=== PATIENT | male | born 1975 | race Two or more races ===

== ENCOUNTER 2020-06-26 20:49 | Emergency (ER) | payer SELFPAY ==
[~2020-06-26] VITALS: Ht 162.6 cm; Wt 54.4 kg
[2020-06-26 21:00] VITALS: BP 114/79
--- NOTE | 2020-06-26 21:12 | PHYS DOC ---
Adult General Chief Complaint Chief Complaint: WRIST PAIN HPI HPI Patient is a 45-year-old male who presents to the emergency department with right hand, wrist and elbow pain. States that he was playing with his child at about 6 PM this evening, fell on an outstretched hand and had immediate pain, 6 out of 10, sharp in nature generally in his right hand/wrist and elbow. Denies any other injuries. States that he took some ibuprofen at home and put some ice on it. Review of Systems Review of Systems Review of systems otherwise unremarkable except noted in HPI Allergies Allergies Allergies Coded Allergies Type Severity Reaction Last Updated Verified No Known Drug Allergies 06/26/20 No Physical Exam Physical Exam Constitutional: Well developed, well nourished, no acute distress, non-toxic appearance. [] HENT: Normocephalic, atraumatic, bilateral external ears normal, oropharynx moist, no oral exudates, nose normal. [] Neck: Normal range of motion, no tenderness, supple, no stridor. [] Cardiovascular:Heart rate regular rhythm, no murmur [] Lungs & Thorax: Bilateral breath sounds clear to auscultation [] Abdomen: no tenderness, Skin: Warm, dry, no erythema, no rash. [] Back: No tenderness, Extremities: Tenderness and swelling in the wrist with no obvious bruising or deformities with some tenderness generally in the hand up the forearm into the elbow with no obvious bruising or deformity. Neurovascular exam intact. Range of motion intact but does cause discomfort Neurologic: Alert and oriented X 3, no focal deficits noted. [] Psychologic: Affect normal, judgement normal, mood normal. [] EKG EKG [] Radiology/Procedures Radiology/Procedures []XR ELBOW COMPLETE_RIGHT 3+ VIEWS, XR RT WRIST 3VIEWS, XR HAND_RIGHT 3 VIEWS 06/26/2020 9:28 PM INDICATION: Fall with history of table saw injury. COMPARISON: None available. TECHNIQUE: 3 views the right hand, 3 views the right wrist and 3 views the right elbow are provided. FINDINGS/ IMPRESSION: 1. Right hand: Surgical resection of fourth metacarpal and phalanx. Surgical clips are present. No acute fracture or dislocation. Joint spaces are maintained. No significant soft tissue abnormality. 2. Right wrist: There is a comminuted fracture of the distal radial metadiaphysis with intra-articular extension to the radiocarpal joint. Mildly displaced ulnar styloid process fracture. Soft tissue swelling is present. 3. Proximal radius and ulna are intact. No elbow joint effusion. Distal humerus is intact. Radiocapitellar joint is preserved. Electronically signed by: Judi Zhu MD (06/26/2020 9:51 PM) [facility] Heart Score C/O Chest Pain: No Risk Factors: Risk Factors: DM, Current or recent (<one month) smoker, HTN, HLP, family history of CAD, obesity. Risk Scores: Risk Factors: DM, Current or recent (<one month) smoker, HTN, HLP, family history of CAD, obesity. Course & Med Decision Making Course & Med Decision Making Patient is a 45-year-old male who presents with right hand/wrist/elbow pain after falling on an outstretched hand Vital signs not concerning. Physical exam noted above. Patient given ice and pain medication in the ED. Imaging notable for comminuted fracture of the distal radial metadiaphysis with extension into the radiocarpal joint. And mildly displaced ulnar styloid fracture. Neurovascular exam intact. Capillary refill appropriate. Sensation appropriate. Pain control with good results. Patient placed in a sugar tong splint. Discussed all findings with family and advised that they needed to see a orthopedic surgeon as soon as possible. Given number for [facility]. Advised to call first thing Sunday. Advised that we should probably talk to the orthopedic surgeon while in the emergency department, but patient stated he would just call them Sunday morning. Gave the risks of this including excessive pain, nerve damage, vascular damage, disability. Family stated they would prefer to go home and call the orthopedics on Sunday. gave pain management for home. Gave education on fractures and splint management. Gave strict return precautions to the ED. Family grateful, verbalized understanding and agreed with plan of discharge. Dragon Disclaimer Dragon Disclaimer This electronic medical record was generated, in whole or in part, using a voice recognition dictation system. Departure Departure: Disposition: HOME / SELF CARE / HOMELESS Condition: GOOD Referrals: PCP,NO (PCP) LINO FLORES MD Patient Instructions: Radial Fracture, Ulnar Fracture Additional Instructions: Please read all of the attached information very carefully. Please take care of your splint as discussed and noted in your education. Please keep your arm elevated, use ibuprofen and your pain medication as discussed and prescribed over the next several days. As discussed, you must call the orthopedic surgeon first thing Sunday morning to discuss your ED visit and set up a follow-up appointment as soon as possible preferably in the next couple of days for reevaluation and reimaging as discussed. As discussed you must come back to the emergency department immediately with any new, or concerning symptoms. [facility] [phone] if you are unable to get a hold of an orthopedic surgeon you can return to the emergency department and we will get a hold of them for you as discussed. Scripts Oxycodone HCl/Acetaminophen (Percocet 5-325 mg Tablet) 1 Each Tablet 1 TAB PO Q6HRS PRN for fracture MDD 2 Tablet(s) for 7 Days, #25 TAB 0 Refills Prov: DERICK CABRERA MD 06/26/20 DERICK CABRERA MD June 26, 2020 21:12
[2020-06-26] MEDS ORDERED: oxyCODONE/APAP 5/325 1 TAB TABLET PO ONE (21:15)
--- NOTE | 2020-06-26 21:54 | RAD ---
XR ELBOW COMPLETE_RIGHT 3+ VIEWS, XR RT WRIST 3VIEWS, XR HAND_RIGHT 3 VIEWS 06/26/2020 9:28 PM INDICATION: Fall with history of table saw injury. COMPARISON: None available. TECHNIQUE: 3 views the right hand, 3 views the right wrist and 3 views the right elbow are provided. FINDINGS/ IMPRESSION: 1. Right hand: Surgical resection of fourth metacarpal and phalanx. Surgical clips are present. No ac [place] fracture or dislocation. Joint spaces are maintained. No significant soft tissue abnormality. 2. Right wrist: There is a comminuted fracture of the distal radial metadiaphysis with intra-articula r extension to the radiocarpal joint. Mildly displaced ulnar styloid process fracture. Soft tissue sw elling is present. 3. Proximal radius and ulna are intact. No elbow joint effusion. Distal humerus is intact. Radiocapit ellar joint is preserved. Electronically signed by: Judi Zhu MD (06/26/2020 9:51 PM) [facility]
--- NOTE | 2020-06-26 21:54 | RAD ---
XR ELBOW COMPLETE_RIGHT 3+ VIEWS, XR RT WRIST 3VIEWS, XR HAND_RIGHT 3 VIEWS 06/26/2020 9:28 PM INDICATION: Fall with history of table saw injury. COMPARISON: None available. TECHNIQUE: 3 views the right hand, 3 views the right wrist and 3 views the right elbow are provided. FINDINGS/ IMPRESSION: 1. Right hand: Surgical resection of fourth metacarpal and phalanx. Surgical clips are present. No ac [place] fracture or dislocation. Joint spaces are maintained. No significant soft tissue abnormality. 2. Right wrist: There is a comminuted fracture of the distal radial metadiaphysis with intra-articula r extension to the radiocarpal joint. Mildly displaced ulnar styloid process fracture. Soft tissue sw elling is present. 3. Proximal radius and ulna are intact. No elbow joint effusion. Distal humerus is intact. Radiocapit ellar joint is preserved. Electronically signed by: Judi Zhu MD (06/26/2020 9:51 PM) [facility]
--- NOTE | 2020-06-26 21:54 | RAD ---
XR ELBOW COMPLETE_RIGHT 3+ VIEWS, XR RT WRIST 3VIEWS, XR HAND_RIGHT 3 VIEWS 06/26/2020 9:28 PM INDICATION: Fall with history of table saw injury. COMPARISON: None available. TECHNIQUE: 3 views the right hand, 3 views the right wrist and 3 views the right elbow are provided. FINDINGS/ IMPRESSION: 1. Right hand: Surgical resection of fourth metacarpal and phalanx. Surgical clips are present. No ac [place] fracture or dislocation. Joint spaces are maintained. No significant soft tissue abnormality. 2. Right wrist: There is a comminuted fracture of the distal radial metadiaphysis with intra-articula r extension to the radiocarpal joint. Mildly displaced ulnar styloid process fracture. Soft tissue sw elling is present. 3. Proximal radius and ulna are intact. No elbow joint effusion. Distal humerus is intact. Radiocapit ellar joint is preserved. Electronically signed by: Judi Zhu MD (06/26/2020 9:51 PM) [facility]
[2020-06-26] MEDS ORDERED: OXYC-325 PO (22:18)
[2020-06-26] MEDS ORDERED: ONDANSETRON ODT 4 MG TAB.RAPDIS PO ONE (22:30)
== END 2020-06-26 22:40 | disposition home or self-care (01) ==
LOC: ER 20:49
DX: S52.101A Unspecified fracture of upper end of right radius, initial encounter for closed fracture (principal); S52.611A Displaced fracture of right ulna styloid process, initial encounter for closed fracture; W18.39XA Other fall on same level, initial encounter; Y93.89 Activity, other specified; Y92.89 Other specified places as the place of occurrence of the external cause; Y99.8 Other external cause status
CPT/HCPCS: 29125; 73080; 73110; 73130; 99284; Q0162